=== PATIENT | female | born 1960 | race Two or more races ===

== ENCOUNTER 2025-03-18 11:18 | Emergency (ER) | payer OTHER ==
[~2025-03-18] VITALS: Ht 175.3 cm; Wt 77.1 kg
[2025-03-18 11:29] VITALS: BP 127/77; O2SAT 98
[2025-03-18] MEDS ORDERED: KETOROLAC TROMETHAMINE 60 MG VIAL IM STA (12:41)
[2025-03-18] MEDS ORDERED: KETOROLAC TROMETHAMINE 60 MG VIAL IM ONE (14:00)
[2025-03-18] MEDS ORDERED: MORPHINE SULFATE 4 MG/ML VIAL IV STA (14:14)
[2025-03-18] MEDS ORDERED: MORPHINE SULFATE 4 MG/ML CARTRIDGE IV STA (14:19)
[2025-03-18] MEDS ORDERED: LIDOCAINE HCL 1% 10ML VIAL ONE (14:21)
== END 2025-03-18 16:01 | disposition home or self-care (01) ==
LOC: ER 11:18
DX: S42.211A Unspecified displaced fracture of surgical neck of right humerus, initial encounter for closed fracture (principal); S00.93XA Contusion of unspecified part of head, initial encounter; S51.011A Laceration without foreign body of right elbow, initial encounter; W18.39XA Other fall on same level, initial encounter; Y93.89 Activity, other specified; Y92.821 Forest as the place of occurrence of the external cause; Y99.9 Unspecified external cause status